=== PATIENT | female | born 1985 | race Caucasian/White ===

== ENCOUNTER 2019-06-01 10:37 | Inpatient (IN) | payer MEDICARE ==
[~2019-06-01] VITALS: Ht 172.7 cm; Wt 78.0 kg
[~2019-06-01 10:37] MED LIST: AMOCLA875 PO; AZAT50 PO; AZIT250 PO; CEPH500 PO; DIAZ5 PO; DIPATR PO; GABA300 PO; HYDACE5; HYDACE5 PO; HYDGUAL120 PO; HYDMOR4 PO; HYDR1TAB94 PO; HYDSUL200 PO; Hydrocodone-Ap1 EA26 PO; LAMICTAL; LEVE500 PO; MAGCHL64ER PO; MELO7.5 PO; METPRE4DP PO; MULVITMINE; NAPR500 PO; NAPR550 PO; NORT10 PO; OMEP20ER PO; OXYACE5T PO; PANCRELIPASE D1 EACH PO; PENVK500 PO; PHENA200 PO; PRED10 PO; PRED20 PO; PRED5 PO; PROC10 PO; PROM25 PO; Percocet 5-3251 EACH PO; RXHYD5325 PO; RXHYDGUAS PO; SULI200; SULTRIDS PO; Vicodin PO; vicodin
[2019-06-01] MEDS ORDERED: BENLYSTA400 MG (11:22)
[2019-06-01] MEDS ORDERED: PRED10 PO (11:23)
[2019-06-01] MEDS ORDERED: HYDMOR4 PO (11:25)
[2019-06-01] MEDS ORDERED: Percocet 7.5-31 EACH PO (11:25)
[2019-06-01] MEDS ORDERED: LEVETIRACETAM500 MG PO (11:25)
[2019-06-01] MEDS ORDERED: GAVILAX17 GM PO (11:26)
[2019-06-01] MEDS ORDERED: ONDA4ODT SL (11:26)
[2019-06-01 12:25] LABS: BASOPHILS ABSOLUTE AUTO 0.01 K/mm3 (0.00-0.23); BASOPHILS PERCENT AUTO 0 % (0-2); EOSINOPHILS ABSOLUTE AUTO 0.01 K/mm3 (0.00-0.68); EOSINOPHILS PERCENT AUTO 0 % (0-6); Hematocrit 39.7 % (33.0-51.0); Hemoglobin 13.3 g/dL (11.5-16.0); IMMATURE GRAN ABSOLUTE AUTO 0.01 K/mm3 (0.00-0.10); IMMATURE GRAN PERCENT AUTO 0 % (0-1); LYMPHOCYTES ABSOLUTE AUTO 1.16 K/mm3 (0.84-5.20); LYMPHOCYTES PERCENT AUTO 35 % (21-46); MONOCYTES ABSOLUTE AUTO 0.38 K/mm3 (0.16-1.47); MONOCYTES PERCENT AUTO 12 % (4-13); Mean Corpuscular HGB 30.2 pg (26.0-34.0); Mean Corpuscular HGB Conc 33.5 g/dL (31.5-36.5); Mean Corpuscular Volume 90 fL (80-100); Mean Platelet Volume 10.9 fL (9.1-12.4); NEUTROPHILS ABSOLUTE AUTO 1.73 K/mm3 (1.96-9.15); NEUTROPHILS PERCENT AUTO 52 % (41-73); Platelet Count 121 K/mm3 (150-400); RDW Coefficient Variation 13.4 % (11.7-14.2); RDW Standard Deviation 44.5 fL (35.1-46.3)
[2019-06-01 12:46] LABS: Alanine Aminotransfer (ALT/SGP 20 U/L (12-78); Albumin, Blood 3.3 g/dL (3.4-5.0); Alk Phos 63 U/L (50-136); Anion Gap 7 mmol/L (6-16); Aspartate Aminotrans (AST/SGOT 18 U/L (12-37); Bilirubin, Total 0.5 mg/dL (0.1-1.0); Blood Urea Nitrogen 9 mg/dL (8-24); Bun/Creatinine Ratio 12.3 (12.0-20.0); CO2, Blood 25 mmol/L (21-32); Calcium, Blood 8.3 mg/dL (8.5-10.1); Chloride, Blood 111 mmol/L (98-108); Creatinine, Blood 0.73 mg/dL (0.40-1.00); Globulin, Blood 3.2 g/dL (2.2-4.0); Glomerular Filtration Rate >60 (60-); Glucose, Blood 76 mg/dL (70-99); Potassium, Blood 3.8 mmol/L (3.5-5.5); Sodium, Blood 143 mmol/L (136-145); Total Protein, Blood 6.5 g/dL (6.4-8.2); Troponin I 0.066 ng/mL (0.000-0.040)
[2019-06-01 13:28] LABS: Source, Urine Clean Catch
[2019-06-01 13:44] LABS: Appearance, Urine Clear (Clear); Bilirubin, Urine Neg (Neg); Blood, Urine Neg (Neg); Color, Urine Yellow (P-Yellow); Glucose Qualitative, Urine Neg (Neg); Ketones, Urine Neg (Neg); Leukocyte Esterase, Urine 1+ (Neg); Nitrite, Urine Neg (Neg); Protein, Urine Neg (Neg); Specific Gravity, Urine 1.015 (1.003-1.022); Urobilinogen, Urine NORM (Normal)
[2019-06-01 13:54] LABS: Bacteria Few /hpf; Red Blood Cells, Urine 0-2 /hpf (0-2); Squamous Epithelial Cells Mod /hpf (Few)
[2019-06-01] MEDS ORDERED: MYCOPHENOLATE500 MG PO (16:11)
[2019-06-02 05:25] LABS: BASOPHILS PERCENT AUTO 0 % (0-2); EOSINOPHILS PERCENT AUTO 0 % (0-6); Hematocrit 37.1 % (33.0-51.0); Hemoglobin 12.3 g/dL (11.5-16.0); IMMATURE GRAN ABSOLUTE AUTO 0.01 K/mm3 (0.00-0.10); IMMATURE GRAN PERCENT AUTO 0 % (0-1); LYMPHOCYTES ABSOLUTE AUTO 0.52 K/mm3 (0.84-5.20); LYMPHOCYTES PERCENT AUTO 14 % (21-46); MONOCYTES ABSOLUTE AUTO 0.06 K/mm3 (0.16-1.47); MONOCYTES PERCENT AUTO 2 % (4-13); Mean Corpuscular HGB 29.8 pg (26.0-34.0); Mean Corpuscular HGB Conc 33.2 g/dL (31.5-36.5); Mean Corpuscular Volume 90 fL (80-100); Mean Platelet Volume 10.7 fL (9.1-12.4); NEUTROPHILS ABSOLUTE AUTO 3.27 K/mm3 (1.96-9.15); NEUTROPHILS PERCENT AUTO 85 % (41-73); Platelet Count 128 K/mm3 (150-400); RDW Coefficient Variation 13.5 % (11.7-14.2); RDW Standard Deviation 44.1 fL (35.1-46.3); Red Blood Cell Count 4.13 M/mm3 (3.80-5.20); White Blood Cell Count 3.86 K/mm3 (4.00-11.30)
[2019-06-02 05:53] LABS: Anion Gap 4 mmol/L (6-16); Blood Urea Nitrogen 9 mg/dL (8-24); CO2, Blood 26 mmol/L (21-32); Calcium, Blood 7.9 mg/dL (8.5-10.1); Chloride, Blood 113 mmol/L (98-108); Creatinine, Blood 0.64 mg/dL (0.40-1.00); Glomerular Filtration Rate >60 (60-); Glucose, Blood 160 mg/dL (70-99); Potassium, Blood 4.2 mmol/L (3.5-5.5); Sodium, Blood 143 mmol/L (136-145)
[2019-06-03] MEDS ORDERED: PRED10 PO ×3 (17:54→17:56)
[2019-06-03] MEDS ORDERED: FAMO20 PO (17:57)
== END 2019-06-03 19:25 | disposition home or self-care (01) | DRG 547 ==
LOC: ER 10:37 → MEDS 10:38 → ENPENDDIS 06-03 17:37 → MEDS 06-03 19:25
PROVIDERS: Emergency Medicine; ADMIT Internal Medicine
DX: M32.9 Systemic lupus erythematosus, unspecified (principal); M79.7 Fibromyalgia; G40.909 Epilepsy, unspecified, not intractable, without status epilepticus; F17.210 Nicotine dependence, cigarettes, uncomplicated; G89.4 Chronic pain syndrome; Z85.41 Personal history of malignant neoplasm of cervix uteri; Z86.73 Personal history of transient ischemic attack (TIA), and cerebral infarction without residual deficits; D70.2 Other drug-induced agranulocytosis; D69.59 Other secondary thrombocytopenia; R73.9 Hyperglycemia, unspecified; T38.0X5A Adverse effect of glucocorticoids and synthetic analogues, initial encounter; T45.1X5A Adverse effect of antineoplastic and immunosuppressive drugs, initial encounter
CPT/HCPCS: 36415; 71046; 78452; 80048; 80053; 81001; 84484; 85025; 87086; 93005; 93010; 93017; 93306; 96361; 96372; 96374; 96375; 96376; 99285-25; A9270-GY; A9500; G0378; J0706; J1170; J1650; J2405; J2785; J2930; J7030